=== PATIENT | female | born 1995 | race Caucasian/White ===

== ENCOUNTER 2023-02-10 08:35 | Emergency (ER) | payer MEDICAID ==
[2023-02-10] MEDS ORDERED: Ondansetron 4 MG/2 ML SDV IVPUSH ONE (09:11)
[2023-02-10] MEDS ORDERED: Loperamide 2 MG Cap PO STA (09:11)
[2023-02-10] MEDS ORDERED: Sodium Chloride 0.9% 1,000 ML IV ONE (09:11)
[2023-02-10] MEDS ORDERED: Ketorolac 30 MG/ML SDV IVPUSH STA (09:11)
[2023-02-10] MEDS ORDERED: Haloperidol Lactate 5 MG/ML SDV IM ONE (09:11)
== END 2023-02-10 10:36 | disposition home or self-care (01) ==
LOC: JD.ED 08:35
DX: G43.909 Migraine, unspecified, not intractable, without status migrainosus (principal); A08.4 Viral intestinal infection, unspecified; Z88.5 Allergy status to narcotic agent; Z88.2 Allergy status to sulfonamides; Z86.16 Personal history of COVID-19
CPT/HCPCS: 96361; 96372; 96374; 96375; 99283; A9270; J1630; J1885; J2405; J7030

== ENCOUNTER 2023-02-11 07:04 | Emergency (ER) | payer MEDICAID ==
[2023-02-11] MEDS ORDERED: Sodium Chloride 0.9% 1,000 ML IV ONE (08:08)
[2023-02-11] MEDS ORDERED: Ondansetron 4 MG/2 ML SDV IVPUSH ONE (08:08)
[2023-02-11 09:16] LABS: CORONAVIRUS COVID-19 NAA NEGATIVE (NEGATIVE)
== END 2023-02-11 12:27 | disposition home or self-care (01) ==
LOC: JD.ED 07:04
DX: A08.4 Viral intestinal infection, unspecified (principal); I95.9 Hypotension, unspecified; F45.8 Other somatoform disorders; Z88.2 Allergy status to sulfonamides; Z88.5 Allergy status to narcotic agent; Z88.8 Allergy status to other drugs, medicaments and biological substances; Z86.16 Personal history of COVID-19; Z20.822 Contact with and (suspected) exposure to COVID-19
CPT/HCPCS: 0241U; 36415; 36600; 71046; 80053; 81001; 81025; 82803; 83735; 83880; 84443; 84484; 85007; 85027; 85379; 85610; 85730; 93005; 96361; 96374; 99284; J2405; J7030; 93010

== ENCOUNTER 2023-10-27 09:51 | Emergency (ER) | payer SELFPAY ==
[2023-10-27] MEDS ORDERED: Sodium Chloride 0.9% 10 ML Syringe FLUSH PRN (10:22)
[2023-10-27] MEDS ORDERED: Ondansetron 4 MG/2 ML SDV IVPUSH ONE (10:22)
[2023-10-27] MEDS ORDERED: Lactated Ringers 1,000 ML IV ONE (10:26)
[2023-10-27 10:53] LABS: HEMATOCRIT 37.9 % (37.0-47.0); HEMOGLOBIN 12.4 gm/dl (12.0-16.0); MEAN CORPUSCULAR VOLUME 83.3 fl (83.0-99.0); RED BLOOD CELL COUNT 4.55 M/mm3 (4.10-5.30); WHITE BLOOD CELL COUNT,WBC 6.54 K/mm3 (3.9-11.3)
[2023-10-27 10:54] LABS: BASOPHILS PERCENT AUTO 0.5 % (0.0-1.0); EOSINOPHILS ABSOLUTE AUTO 0.1 K/mm3 (0.0-0.4); EOSINOPHILS PERCENT AUTO 2.1 % (0.0-6.0); IMMATURE GRAN ABSOLUTE AUTO 0.02 K/mm3 (0.00-0.05); IMMATURE GRAN PERCENT AUTO 0.3 % (0.0-0.4); LYMPHOCYTES ABSOLUTE AUTO 1.2 K/mm3 (1.0-4.8); LYMPHOCYTES PERCENT AUTO 18.3 % (24.0-44.0); MEAN CORPUSCULAR HEMOGLOBIN 27.3 pg (28.0-32.0); MEAN CORPUSCULAR HGB CONC 32.7 g/dl (32.0-36.0); MEAN PLATELET VOLUME 9.9 fl (9.4-12.3); MONOCYTES ABSOLUTE AUTO 0.4 K/mm3 (0.0-0.8); MONOCYTES PERCENT AUTO 5.5 % (0.0-8.0); NEUTROPHILS ABSOLUTE AUTO 4.8 K/mm3 (1.8-7.7); NEUTROPHILS PERCENT AUTO 73.3 % (41.0-71.0); PLATELET COUNT,PLT 279 K/mm3 (150-400)
[2023-10-27 11:01] LABS: APPEARANCE,URINE SLT CLOUDY (Clear); BILIRUBIN,URINE NEGATIVE (Negative); COLOR,URINE YELLOW (Yellow); GLUCOSE,URINE NEGATIVE (Negative); KETONES,URINE 1+ (Negative); LEUKOCYTE ESTERASE,URINE NEGATIVE (Negative); NITRITE,URINE NEGATIVE (Negative); OCCULT BLOOD,URINE NEGATIVE (Negative); PROTEIN,URINE 1+ (Negative); UROBILINOGEN,URINE 0.2 (0.2-1.0)
[2023-10-27 11:14] LABS: A/G RATIO 0.9 (1-2); ALBUMIN 3.4 g/dl (3.4-5.0); ANION GAP 17.9 (5-15); BILIRUBIN TOTAL 0.2 mg/dL (0.2-1.0); CALCIUM 8.7 mg/dL (8.5-10.1); EST CRCL DRUG DOSING (CG) 76.71 mL/min; MAGNESIUM 1.6 mg/dL (1.8-2.4); POTASSIUM,K 3.9 mEq/L (3.5-5.1)
[2023-10-27 11:33] LABS: CORONAVIRUS COVID-19 NAA POSITIVE (NEGATIVE); INFLUENZA A NAA NEGATIVE (NEGATIVE); RESPIRATORY SYNCYTIAL VIR NAA NEGATIVE (NEGATIVE)
[2023-10-27 11:37] LABS: BACTERIA,URINE FEW /hpf (FEW); MUCUS,URINE FEW /hpf (FEW); RBC,URINE 0-5 /hpf (0-5); WBC,URINE 0-5 /hpf (0-5)
== END 2023-10-27 12:05 | disposition home or self-care (01) ==
LOC: JD.ED 09:51
DX: U07.1 COVID-19 (principal); J45.909 Unspecified asthma, uncomplicated; Z86.16 Personal history of COVID-19; Z79.899 Other long term (current) drug therapy; Z88.2 Allergy status to sulfonamides; Z88.5 Allergy status to narcotic agent; Z91.041 Radiographic dye allergy status; Z88.8 Allergy status to other drugs, medicaments and biological substances
CPT/HCPCS: 0241U; 36415; 80053; 81001; 81025; 83690; 83735; 85025; 96361; 96374; 99284; J2405; J3490; J7120

== ENCOUNTER 2024-08-29 14:52 | Emergency (ER) | payer OTHER ==
[2024-08-29 15:29] LABS: BASOPHILS PERCENT AUTO 0.3 % (0.0-1.0); EOSINOPHILS ABSOLUTE AUTO 0.2 K/mm3 (0.0-0.4); EOSINOPHILS PERCENT AUTO 2.1 % (0.0-6.0); HEMATOCRIT 39.6 % (37.0-47.0); HEMOGLOBIN 13.1 gm/dl (12.0-16.0); IMMATURE GRAN ABSOLUTE AUTO 0.03 K/mm3 (0.00-0.05); IMMATURE GRAN PERCENT AUTO 0.3 % (0.0-0.4); LYMPHOCYTES ABSOLUTE AUTO 1.6 K/mm3 (1.0-4.8); LYMPHOCYTES PERCENT AUTO 14.3 % (24.0-44.0); MEAN CORPUSCULAR HGB CONC 33.1 g/dl (32.0-36.0); MEAN CORPUSCULAR VOLUME 84.6 fl (83.0-99.0); MEAN PLATELET VOLUME 10.1 fl (9.4-12.3); MONOCYTES ABSOLUTE AUTO 0.6 K/mm3 (0.0-0.8); MONOCYTES PERCENT AUTO 5.1 % (0.0-8.0); NEUTROPHILS ABSOLUTE AUTO 8.9 K/mm3 (1.8-7.7); NEUTROPHILS PERCENT AUTO 77.9 % (41.0-71.0); PLATELET COUNT,PLT 384 K/mm3 (150-400); RED BLOOD CELL COUNT 4.68 M/mm3 (4.10-5.30); WHITE BLOOD CELL COUNT,WBC 11.44 K/mm3 (3.9-11.3)
[2024-08-29] MEDS: diphenhydrAMINE 50 MG/ML SDV IVPUSH ONE (15:34)
[2024-08-29] MEDS: Sodium Chloride 0.9% 1,000 ML IV SCH (15:34)
[2024-08-29] MEDS: Metoclopramide 10 MG/2 ML SDV IVPUSH ONE (15:34)
[2024-08-29 16:09] LABS: A/G RATIO 1.1 (1-2); ALBUMIN 4.1 g/dl (3.4-5.0); ANION GAP 19.5 (5-15); BILIRUBIN TOTAL 0.5 mg/dL (0.2-1.0); C-REACTIVE PROTEIN 1.51 mg/dL (<0.30); CALCIUM 9.1 mg/dL (8.5-10.1); EST CRCL DRUG DOSING (CG) 76.04 mL/min; POTASSIUM,K 3.5 mEq/L (3.5-5.1)
[2024-08-29 16:24] LABS: CORONAVIRUS COVID-19 NAA NEGATIVE (NEGATIVE); INFLUENZA A NAA NEGATIVE (NEGATIVE); RESPIRATORY SYNCYTIAL VIR NAA NEGATIVE (NEGATIVE)
[2024-08-29 16:40] LABS: APPEARANCE,URINE CLEAR (Clear); BILIRUBIN,URINE 1+ (Negative); COLOR,URINE YELLOW (Yellow); GLUCOSE,URINE NEGATIVE (Negative); KETONES,URINE 2+ (Negative); LEUKOCYTE ESTERASE,URINE NEGATIVE (Negative); NITRITE,URINE NEGATIVE (Negative); OCCULT BLOOD,URINE NEGATIVE (Negative); PH,URINE 6.5 (5.0-8.0); PROTEIN,URINE 3+ (Negative)
[2024-08-29 17:02] LABS: RBC,URINE 0-5 /hpf (0-5)
[2024-08-29 17:03] LABS: BACTERIA,URINE MODERATE /hpf (FEW); MUCUS,URINE MODERATE /hpf (FEW); WBC,URINE 0-5 /hpf (0-5)
== END 2024-08-29 16:47 | disposition home or self-care (01) ==
LOC: JD.ED 14:52
DX: R11.2 Nausea with vomiting, unspecified (principal); R10.10 Upper abdominal pain, unspecified; Z79.899 Other long term (current) drug therapy; Z88.0 Allergy status to penicillin; Z88.8 Allergy status to other drugs, medicaments and biological substances; Z91.041 Radiographic dye allergy status; Z86.16 Personal history of COVID-19
CPT/HCPCS: 0241U; 36415; 80053; 81001; 83605; 83690; 83735; 84702; 85025; 86140; 96361; 96374; 96375; 99284; J1200; J2765; J7030

== ENCOUNTER 2024-11-07 07:29 | Emergency (ER) | payer OTHER ==
[2024-11-07] MEDS: Ondansetron 4 MG/2 ML SDV IVPUSH ONE (08:14)
[2024-11-07] MEDS: Sodium Chloride 0.9% 1,000 ML IV STA (08:14)
[2024-11-07 08:15] LABS: BASOPHILS PERCENT AUTO 0.1 % (0.0-1.0); EOSINOPHILS PERCENT AUTO 0.2 % (0.0-6.0); HEMATOCRIT 38.3 % (37.0-47.0); HEMOGLOBIN 12.4 gm/dl (12.0-16.0); IMMATURE GRAN ABSOLUTE AUTO 0.03 K/mm3 (0.00-0.05); IMMATURE GRAN PERCENT AUTO 0.3 % (0.0-0.4); LYMPHOCYTES ABSOLUTE AUTO 1.2 K/mm3 (1.0-4.8); LYMPHOCYTES PERCENT AUTO 13.3 % (24.0-44.0); MEAN CORPUSCULAR HEMOGLOBIN 28.1 pg (28.0-32.0); MEAN CORPUSCULAR HGB CONC 32.4 g/dl (32.0-36.0); MEAN CORPUSCULAR VOLUME 86.8 fl (83.0-99.0); MONOCYTES ABSOLUTE AUTO 0.3 K/mm3 (0.0-0.8); MONOCYTES PERCENT AUTO 3.6 % (0.0-8.0); NEUTROPHILS ABSOLUTE AUTO 7.3 K/mm3 (1.8-7.7); NEUTROPHILS PERCENT AUTO 82.5 % (41.0-71.0); PLATELET COUNT,PLT 275 K/mm3 (150-400); RED BLOOD CELL COUNT 4.41 M/mm3 (4.10-5.30); WHITE BLOOD CELL COUNT,WBC 8.86 K/mm3 (3.9-11.3)
[2024-11-07] MEDS: HYDROmorphone 0.5 MG/0.5 ML Syringe IVPUSH ONE (08:15)
[2024-11-07] MEDS: Sodium Chloride 0.9% 10 ML Syringe FLUSH PRN (08:16)
[2024-11-07 08:46] LABS: A/G RATIO 1.1 (1-2); ALBUMIN 3.7 g/dl (3.4-5.0); ANION GAP 19.4 (5-15); BILIRUBIN TOTAL 0.8 mg/dL (0.2-1.0); BUN/CREATININE RATIO 12.2 (14-18); CALCIUM 8.7 mg/dL (8.5-10.1); CREATININE 0.9 mg/dL (0.55-1.02); EST CRCL DRUG DOSING (CG) 84.49 mL/min; MAGNESIUM 1.9 mg/dL (1.8-2.4); POTASSIUM,K 3.4 mEq/L (3.5-5.1); PROTEIN TOTAL,TP 7.2 g/dl (6.4-8.2)
[2024-11-07 10:00] LABS: APPEARANCE,URINE CLEAR (Clear); BILIRUBIN,URINE NEGATIVE (Negative); COLOR,URINE YELLOW (Yellow); GLUCOSE,URINE NEGATIVE (Negative); KETONES,URINE 4+ (Negative); LEUKOCYTE ESTERASE,URINE NEGATIVE (Negative); NITRITE,URINE NEGATIVE (Negative); OCCULT BLOOD,URINE 2+ (Negative); PH,URINE 6.5 (5.0-8.0); PROTEIN,URINE 1+ (Negative)
[2024-11-07 10:48] LABS: BACTERIA,URINE FEW /hpf (FEW); RBC,URINE 0-5 /hpf (0-5); SQUAMOUS EPITHELIAL CELLS,UR 0-5 /hpf (0-5); WBC,URINE 0-5 /hpf (0-5)
[2024-11-07 10:49] LABS: MUCUS,URINE MODERATE /hpf (FEW)
[2024-11-07] MEDS: Metoclopramide 10 MG/2 ML SDV IVPUSH ONE (11:43)
[2024-11-07] MEDS: Sodium Chloride 0.9% 1,000 ML IV ONE (11:43)
== END 2024-11-07 13:05 | disposition home or self-care (01) ==
LOC: JD.ED 07:29
DX: A08.4 Viral intestinal infection, unspecified (principal); E86.0 Dehydration; J45.909 Unspecified asthma, uncomplicated; Z86.16 Personal history of COVID-19; Z90.89 Acquired absence of other organs; Z88.2 Allergy status to sulfonamides; Z88.5 Allergy status to narcotic agent; Z88.8 Allergy status to other drugs, medicaments and biological substances; Z91.041 Radiographic dye allergy status; Z79.899 Other long term (current) drug therapy
CPT/HCPCS: 36415; 74176; 80053; 81001; 83690; 83735; 84703; 85025; 96361; 96374; 96375; 99284; J2405; J2765; J7030

== ENCOUNTER 2024-11-09 15:09 | Emergency (ER) | payer OTHER | END 2024-11-09 16:00 | disposition left against medical advice (07) | LOC: JD.ED 15:09 | DX: Z53.21 Procedure and treatment not carried out due to patient leaving prior to being seen by health care provider (principal) ==

== ENCOUNTER 2024-11-10 04:11 | Emergency (ER) | payer OTHER ==
[2024-11-10] MEDS ORDERED: droPERidol 5 MG/2 ML SDV IVPUSH ONE (04:32)
[2024-11-10] MEDS: diphenhydrAMINE 50 MG/ML SDV IVPUSH ONE (04:46)
[2024-11-10] MEDS: Haloperidol Lactate 5 MG/ML SDV IVPUSH ONE ×2 (04:47→07:24)
[2024-11-10 04:56] LABS: BASOPHILS PERCENT AUTO 0.6 % (0.0-1.0); EOSINOPHILS ABSOLUTE AUTO 0.1 K/mm3 (0.0-0.4); HEMATOCRIT 39.1 % (37.0-47.0); HEMOGLOBIN 12.8 gm/dl (12.0-16.0); IMMATURE GRAN ABSOLUTE AUTO 0.01 K/mm3 (0.00-0.05); IMMATURE GRAN PERCENT AUTO 0.2 % (0.0-0.4); LYMPHOCYTES ABSOLUTE AUTO 2.8 K/mm3 (1.0-4.8); LYMPHOCYTES PERCENT AUTO 44.2 % (24.0-44.0); MEAN CORPUSCULAR HEMOGLOBIN 27.8 pg (28.0-32.0); MEAN CORPUSCULAR HGB CONC 32.7 g/dl (32.0-36.0); MEAN PLATELET VOLUME 10.4 fl (9.4-12.3); MONOCYTES ABSOLUTE AUTO 0.6 K/mm3 (0.0-0.8); MONOCYTES PERCENT AUTO 8.9 % (0.0-8.0); NEUTROPHILS ABSOLUTE AUTO 2.9 K/mm3 (1.8-7.7); NEUTROPHILS PERCENT AUTO 45.1 % (41.0-71.0); PLATELET COUNT,PLT 320 K/mm3 (150-400); WHITE BLOOD CELL COUNT,WBC 6.31 K/mm3 (3.9-11.3)
[2024-11-10] MEDS: Sodium Chloride 0.9% 1,000 ML IV SCH (04:57)
[2024-11-10 05:09] LABS: APPEARANCE,URINE CLEAR (Clear); BILIRUBIN,URINE 1+ (Negative); COLOR,URINE YELLOW (Yellow); GLUCOSE,URINE NEGATIVE (Negative); KETONES,URINE NEGATIVE (Negative); LEUKOCYTE ESTERASE,URINE NEGATIVE (Negative); NITRITE,URINE NEGATIVE (Negative); OCCULT BLOOD,URINE 2+ (Negative); PROTEIN,URINE 3+ (Negative)
[2024-11-10] MEDS: Sodium Chloride 0.9% 10 ML Syringe FLUSH PRN (05:09)
[2024-11-10 05:16] LABS: BACTERIA,URINE MODERATE /hpf (FEW); MUCUS,URINE FEW /hpf (FEW); RBC,URINE 0-5 /hpf (0-5); WBC,URINE 0-5 /hpf (0-5)
[2024-11-10 05:27] LABS: BARBITURATE SCREEN,URINE NEGATIVE (CUTOFF=200); BENZODIAZEPINES SCREEN,URINE NEGATIVE (CUTOFF=150); BUPRENORPHINE SCREEN,URINE NEGATIVE (CUTOFF=10); METHADONE SCREEN, URINE NEGATIVE (CUTOFF=200); METHAMPHETAMINES SCREEN, URINE PRESUMPTIVE POSITIVE (CUTOFF=500); OXYCODONE SCREEN,URINE NEGATIVE (CUT0FF=100); THC SCREEN,URINE 20 NG/ML PRESUMPTIVE POSITIVE (CUTOFF=50)
[2024-11-10] MEDS: LORazepam 2 MG/ML SDV IVPUSH ONE (05:48)
[2024-11-10 06:05] LABS: A/G RATIO 1.2 (1-2); ALBUMIN 4.1 g/dl (3.4-5.0); BILIRUBIN TOTAL 0.9 mg/dL (0.2-1.0); EST CRCL DRUG DOSING (CG) 72.97 mL/min; PROTEIN TOTAL,TP 7.6 g/dl (6.4-8.2)
[2024-11-10 06:09] LABS: AMPHETAMINES SCREEN, URINE NEGATIVE (CUTOFF=500)
[2024-11-10 06:16] LABS: LACTIC ACID 2.3 mmol/L (0.4-2.0)
[2024-11-10] MEDS: Sodium Chloride 0.9% 1,000 ML IV ONE ×2 (07:13→08:25)
[2024-11-10] MEDS: LORazepam 2 MG/ML SDV IVPUSH STA (07:22)
[2024-11-10 08:34] LABS: ANION GAP 23.5 (5-15); POTASSIUM,K 3.5 mEq/L (3.5-5.1)
== END 2024-11-10 10:22 ==
LOC: JD.ED 04:11
DX: R11.15 Cyclical vomiting syndrome unrelated to migraine (principal); F12.90 Cannabis use, unspecified, uncomplicated; E86.0 Dehydration; R79.89 Other specified abnormal findings of blood chemistry; J45.909 Unspecified asthma, uncomplicated; Z86.16 Personal history of COVID-19; Z90.89 Acquired absence of other organs; Z88.2 Allergy status to sulfonamides; Z88.5 Allergy status to narcotic agent; Z88.8 Allergy status to other drugs, medicaments and biological substances; Z91.041 Radiographic dye allergy status; Z79.899 Other long term (current) drug therapy
CPT/HCPCS: 36415; 80053; 80306; 81001; 81025; 83605; 83690; 85025; 87040; 87045; 87046; 87428; 87899; 93005; 96361; 96374; 96375; 96376; 99284; J1200; J1630; J2060; J7030

== ENCOUNTER 2024-11-11 13:19 | Emergency (ER) | payer OTHER | END 2024-11-11 14:54 | disposition left against medical advice (07) | LOC: JD.ED 13:19 | DX: Z53.21 Procedure and treatment not carried out due to patient leaving prior to being seen by health care provider (principal) ==

== ENCOUNTER 2024-11-14 10:44 | Inpatient (IN) | payer OTHER ==
[2024-11-14 13:59] LABS: BASOPHILS PERCENT AUTO 0.3 % (0.0-1.0); EOSINOPHILS PERCENT AUTO 0.4 % (0.0-6.0); HEMATOCRIT 39.8 % (37.0-47.0); HEMOGLOBIN 13.6 gm/dl (12.0-16.0); IMMATURE GRAN ABSOLUTE AUTO 0.03 K/mm3 (0.00-0.05); IMMATURE GRAN PERCENT AUTO 0.4 % (0.0-0.4); MEAN CORPUSCULAR HEMOGLOBIN 28.2 pg (28.0-32.0); MEAN CORPUSCULAR HGB CONC 34.2 g/dl (32.0-36.0); MEAN CORPUSCULAR VOLUME 82.4 fl (83.0-99.0); MEAN PLATELET VOLUME 10.8 fl (9.4-12.3); MONOCYTES ABSOLUTE AUTO 0.6 K/mm3 (0.0-0.8); MONOCYTES PERCENT AUTO 9.4 % (0.0-8.0); NEUTROPHILS ABSOLUTE AUTO 4.1 K/mm3 (1.8-7.7); NEUTROPHILS PERCENT AUTO 60.5 % (41.0-71.0); PLATELET COUNT,PLT 351 K/mm3 (150-400); RED BLOOD CELL COUNT 4.83 M/mm3 (4.10-5.30); WHITE BLOOD CELL COUNT,WBC 6.82 K/mm3 (3.9-11.3)
[2024-11-14 14:32] LABS: A/G RATIO 1.3 (1-2); ALBUMIN 4.4 g/dl (3.4-5.0); ANION GAP 16.7 (5-15); BILIRUBIN TOTAL 1.1 mg/dL (0.2-1.0); C-REACTIVE PROTEIN 0.22 mg/dL (<0.30); CALCIUM 9.4 mg/dL (8.5-10.1); CREATININE 0.9 mg/dL (0.55-1.02); EST CRCL DRUG DOSING (CG) 84.49 mL/min; POTASSIUM,K 2.7 mEq/L (3.5-5.1); PROTEIN TOTAL,TP 7.9 g/dl (6.4-8.2)
[2024-11-14] MEDS: Sodium Chloride 0.9% 1,000 ML IV ONE ×2 (14:32→15:57)
[2024-11-14] MEDS: Metoclopramide 10 MG/2 ML SDV IVPUSH ONE (14:32)
[2024-11-14 15:53] LABS: APPEARANCE,URINE CLEAR (Clear); BILIRUBIN,URINE 1+ (Negative); COLOR,URINE YELLOW (Yellow); GLUCOSE,URINE NEGATIVE (Negative); KETONES,URINE 3+ (Negative); LEUKOCYTE ESTERASE,URINE NEGATIVE (Negative); NITRITE,URINE NEGATIVE (Negative); OCCULT BLOOD,URINE NEGATIVE (Negative); PROTEIN,URINE 2+ (Negative)
[2024-11-14] MEDS: Potassium Chloride 10 MEQ in Premix Bag 1 BAG IV SCH (15:58)
[2024-11-14 15:59] LABS: BACTERIA,URINE MODERATE /hpf (FEW); MUCUS,URINE FEW /hpf (FEW); RBC,URINE 0-5 /hpf (0-5); WBC,URINE 0-5 /hpf (0-5)
[2024-11-14] MEDS ORDERED: Ondansetron 4 MG/2 ML SDV IV PRN (17:19)
[2024-11-14 17:57] LABS: MAGNESIUM 1.9 mg/dL (1.8-2.4); PHOSPHORUS 2.3 mg/dL (2.6-4.7)
[2024-11-14] MEDS: NS with KCl 40mEq 1,000 ML IV SCH (18:28)
[2024-11-14 21:14] LABS: BARBITURATE SCREEN,URINE NEGATIVE (CUTOFF=200); BENZODIAZEPINES SCREEN,URINE NEGATIVE (CUTOFF=150); BUPRENORPHINE SCREEN,URINE NEGATIVE (CUTOFF=10); METHADONE SCREEN, URINE NEGATIVE (CUTOFF=200); METHAMPHETAMINES SCREEN, URINE NEGATIVE (CUTOFF=500); OXYCODONE SCREEN,URINE NEGATIVE (CUT0FF=100); THC SCREEN,URINE 20 NG/ML PRESUMPTIVE POSITIVE (CUTOFF=50)
[2024-11-14 21:16] LABS: AMPHETAMINES SCREEN, URINE NEGATIVE (CUTOFF=500)
[2024-11-14] MEDS: Metoclopramide 10 MG/2 ML SDV IVPUSH PRN (21:21)
[2024-11-14] MEDS: D5 1/2 NS w/ 40 mEq/L KCl 1,000 ML IV SCH (21:21)
[2024-11-14] MEDS: Citalopram 20 MG Tab PO SCH (21:44)
[2024-11-14] MEDS: lamoTRIgine 100 MG Tab PO SCH (21:44)
[2024-11-15 04:46] LABS: BASOPHILS PERCENT AUTO 0.4 % (0.0-1.0); EOSINOPHILS ABSOLUTE AUTO 0.1 K/mm3 (0.0-0.4); EOSINOPHILS PERCENT AUTO 0.7 % (0.0-6.0); HEMATOCRIT 38.1 % (37.0-47.0); HEMOGLOBIN 12.3 gm/dl (12.0-16.0); IMMATURE GRAN ABSOLUTE AUTO 0.01 K/mm3 (0.00-0.05); IMMATURE GRAN PERCENT AUTO 0.1 % (0.0-0.4); LYMPHOCYTES ABSOLUTE AUTO 3.2 K/mm3 (1.0-4.8); LYMPHOCYTES PERCENT AUTO 43.9 % (24.0-44.0); MEAN CORPUSCULAR HEMOGLOBIN 27.6 pg (28.0-32.0); MEAN CORPUSCULAR HGB CONC 32.3 g/dl (32.0-36.0); MEAN CORPUSCULAR VOLUME 85.6 fl (83.0-99.0); MEAN PLATELET VOLUME 10.8 fl (9.4-12.3); MONOCYTES ABSOLUTE AUTO 0.8 K/mm3 (0.0-0.8); MONOCYTES PERCENT AUTO 11.3 % (0.0-8.0); NEUTROPHILS ABSOLUTE AUTO 3.2 K/mm3 (1.8-7.7); NEUTROPHILS PERCENT AUTO 43.6 % (41.0-71.0); PLATELET COUNT,PLT 299 K/mm3 (150-400); RED BLOOD CELL COUNT 4.45 M/mm3 (4.10-5.30); WHITE BLOOD CELL COUNT,WBC 7.32 K/mm3 (3.9-11.3)
[2024-11-15 05:16] LABS: A/G RATIO 1.2 (1-2); ALBUMIN 3.7 g/dl (3.4-5.0); ANION GAP 14.4 (5-15); BILIRUBIN TOTAL 1.1 mg/dL (0.2-1.0); CALCIUM 8.2 mg/dL (8.5-10.1); CREATININE 0.8 mg/dL (0.55-1.02); EST CRCL DRUG DOSING (CG) 95.05 mL/min; POTASSIUM,K 3.4 mEq/L (3.5-5.1); PROTEIN TOTAL,TP 6.7 g/dl (6.4-8.2)
[2024-11-15] MEDS: Pantoprazole 40 MG Tab.CR PO SCH (05:37)
[2024-11-15] MEDS ORDERED: lamoTRIgine 100 MG Tab PO SCH (09:00)
[2024-11-15] MEDS ORDERED: Citalopram 20 MG Tab PO SCH (09:00)
[2024-11-15] MEDS: Enoxaparin 40 MG/0.4 ML Syringe SUBCUT SCH (09:07)
[2024-11-15] MEDS: Potassium Chloride 10 MEQ in Premix Bag 1 BAG IV SCH (09:16)
[2024-11-15] MEDS: Sodium Chloride 0.9% 1,000 ML IV SCH (10:48)
[2024-11-15] MEDS: Metoclopramide 10 MG/2 ML SDV IVPUSH SCH (18:09)
[2024-11-15] MEDS: Acetaminophen 325 MG Tab PO PRN (18:13)
[2024-11-16 04:38] LABS: BASOPHILS PERCENT AUTO 0.3 % (0.0-1.0); EOSINOPHILS ABSOLUTE AUTO 0.1 K/mm3 (0.0-0.4); EOSINOPHILS PERCENT AUTO 0.9 % (0.0-6.0); HEMATOCRIT 39.7 % (37.0-47.0); HEMOGLOBIN 12.7 gm/dl (12.0-16.0); IMMATURE GRAN ABSOLUTE AUTO 0.01 K/mm3 (0.00-0.05); IMMATURE GRAN PERCENT AUTO 0.2 % (0.0-0.4); LYMPHOCYTES ABSOLUTE AUTO 2.7 K/mm3 (1.0-4.8); LYMPHOCYTES PERCENT AUTO 47.2 % (24.0-44.0); MEAN CORPUSCULAR HEMOGLOBIN 27.4 pg (28.0-32.0); MEAN CORPUSCULAR VOLUME 85.7 fl (83.0-99.0); MEAN PLATELET VOLUME 10.7 fl (9.4-12.3); MONOCYTES ABSOLUTE AUTO 0.7 K/mm3 (0.0-0.8); MONOCYTES PERCENT AUTO 11.2 % (0.0-8.0); NEUTROPHILS ABSOLUTE AUTO 2.3 K/mm3 (1.8-7.7); NEUTROPHILS PERCENT AUTO 40.2 % (41.0-71.0); PLATELET COUNT,PLT 287 K/mm3 (150-400); RED BLOOD CELL COUNT 4.63 M/mm3 (4.10-5.30); WHITE BLOOD CELL COUNT,WBC 5.79 K/mm3 (3.9-11.3)
[2024-11-16 05:17] LABS: A/G RATIO 1.3 (1-2); ALBUMIN 3.9 g/dl (3.4-5.0); ANION GAP 19.1 (5-15); BILIRUBIN TOTAL 0.9 mg/dL (0.2-1.0); CALCIUM 8.9 mg/dL (8.5-10.1); CREATININE 0.8 mg/dL (0.55-1.02); EST CRCL DRUG DOSING (CG) 95.05 mL/min; MAGNESIUM 2.2 mg/dL (1.8-2.4); PHOSPHORUS 4.2 mg/dL (2.6-4.7); POTASSIUM,K 3.1 mEq/L (3.5-5.1)
[2024-11-16] MEDS ORDERED: Sodium Chloride 0.9% 1,000 ML IV SCH (07:45)
[2024-11-16] MEDS ORDERED: Potassium Chloride 10 MEQ in Premix Bag 1 BAG IV SCH (08:00)
[2024-11-16] MEDS: Potassium Chloride 20 MEQ Tab.ER PO SCH (09:34)
[2024-11-19 09:42] LABS: CALPROTECTIN,FECAL 56 ug/g (<=49)
== END 2024-11-16 15:12 | disposition home or self-care (01) | DRG 392 ==
LOC: JD.ED 10:44 → JD.MS 17:19
PROVIDERS: ADMIT Family Medicine; ATTEND Family Medicine
DX: K31.84 Gastroparesis (principal); E87.20 Acidosis, unspecified; N17.9 Acute kidney failure, unspecified; S36.119A Unspecified injury of liver, initial encounter; K52.9 Noninfective gastroenteritis and colitis, unspecified; R11.10 Vomiting, unspecified; F12.120 Cannabis abuse with intoxication, uncomplicated; F41.9 Anxiety disorder, unspecified; H54.7 Unspecified visual loss; D50.9 Iron deficiency anemia, unspecified; F17.210 Nicotine dependence, cigarettes, uncomplicated; F15.10 Other stimulant abuse, uncomplicated; E86.0 Dehydration; T73.0XXA Starvation, initial encounter; E87.6 Hypokalemia; E83.39 Other disorders of phosphorus metabolism; R74.8 Abnormal levels of other serum enzymes; F31.9 Bipolar disorder, unspecified; R63.0 Anorexia; Z68.28 Body mass index [BMI] 28.0-28.9, adult; Z88.2 Allergy status to sulfonamides; Z88.7 Allergy status to serum and vaccine; Z91.041 Radiographic dye allergy status; Z79.899 Other long term (current) drug therapy; Z86.16 Personal history of COVID-19; Z98.890 Other specified postprocedural states; Z87.42 Personal history of other diseases of the female genital tract; Z87.440 Personal history of urinary (tract) infections
CPT/HCPCS: 36415; 74176; 74176-26; 80053; 80306; 81001; 81025; 82550; 83605; 83630; 83690; 83735; 84100; 85025; 86140; 87045; 87046; 87338; 87428-QW; 87899; 96361; 96365; 96375; 99223; 99233; 99239; 99284; 99285-25; A9270-GY; J1650; J2765; J3480; J7030

== ENCOUNTER 2025-07-23 03:50 | Emergency (ER) | payer BC, OTHER ==
[2025-07-23] MEDS: Ondansetron 4 MG/2 ML SDV IVPUSH ONE (04:32)
[2025-07-23 04:42] LABS: BASOPHILS ABSOLUTE AUTO 0.0 K/mm3 (0.0-0.2); BASOPHILS PERCENT AUTO 0.1 % (0.0-1.0); EOSINOPHILS ABSOLUTE AUTO 0.0 K/mm3 (0.0-0.4); EOSINOPHILS PERCENT AUTO 0.0 % (0.0-6.0); IMMATURE GRAN ABSOLUTE AUTO 0.04 K/mm3 (0.00-0.05); IMMATURE GRAN PERCENT AUTO 0.3 % (0.0-0.4); LYMPHOCYTES ABSOLUTE AUTO 1.3 K/mm3 (1.0-4.8); LYMPHOCYTES PERCENT AUTO 9.3 % (24.0-44.0); MEAN PLATELET VOLUME 10.4 fl (9.4-12.3); MONOCYTES ABSOLUTE AUTO 0.2 K/mm3 (0.0-0.8); MONOCYTES PERCENT AUTO 1.3 % (0.0-8.0); NEUTROPHILS ABSOLUTE AUTO 12.0 K/mm3 (1.8-7.7); NEUTROPHILS PERCENT AUTO 89.0 % (41.0-71.0); NRBC ABSOLUTE 0.00 (0.00-0.02); NRBC PERCENT 0.0 % (0.0-0.2); PLATELET COUNT,PLT 388 K/mm3 (150-400); RED BLOOD CELL COUNT 4.75 M/mm3 (4.10-5.30); WHITE BLOOD CELL COUNT,WBC 13.48 K/mm3 (3.9-11.3)
[2025-07-23 04:43] LABS: APPEARANCE,URINE SLT CLOUDY (Clear); GLUCOSE,URINE NEGATIVE (Negative); OCCULT BLOOD,URINE TRACE-INTACT (Negative)
[2025-07-23 04:52] LABS: A/G RATIO 1.1 (1-2); ALANINE AMINOTRANSFERASE,ALT 31.0 U/L (14-59); ASPARTATE AMNIOTRANSFERASE,AST 16.0 U/L (15-37); BILIRUBIN TOTAL 0.6 mg/dL (0.2-1.0); BLOOD UREA NITROGEN,BUN 16.0 mg/dL (7-18); CARBON DIOXIDE,CO2 16.0 mEq/L (21-32); CHLORIDE,CL 100.0 mEq/L (98-107); CREATININE 1.0 mg/dL (0.55-1.02); EST CRCL DRUG DOSING (CG) 78.41 mL/min; ESTIMATED GFR 79.0 mL/min (>60); GLUCOSE RANDOM 128.0 mg/dL (70-99); PHOSPHORUS 3.6 mg/dL (2.6-4.7); POTASSIUM,K 3.4 mEq/L (3.5-5.1); PROTEIN TOTAL,TP 8.3 g/dl (6.4-8.2); SODIUM,NA 136.0 mEq/L (136-145)
[2025-07-23 04:54] LABS: BUPRENORPHINE SCREEN,URINE NEGATIVE (CUTOFF=10); METHADONE SCREEN, URINE NEGATIVE (CUTOFF=200); METHAMPHETAMINES SCREEN, URINE NEGATIVE (CUTOFF=500); OXYCODONE SCREEN,URINE NEGATIVE (CUT0FF=100); THC SCREEN,URINE 20 NG/ML PRESUMPTIVE POSITIVE (CUTOFF=50)
[2025-07-23 04:55] LABS: LACTIC ACID 1.4 mmol/L (0.4-2.0)
[2025-07-23 04:57] LABS: AMPHETAMINES SCREEN, URINE NEGATIVE (CUTOFF=500)
[2025-07-23] MEDS: droPERidol 2.5 MG/ML SDV IV ONE (05:11)
[2025-07-23] MEDS ORDERED: Sodium Chloride 0.9% 10 ML Syringe FLUSH PRN (05:13)
[2025-07-23] MEDS: diphenhydrAMINE 50 MG/ML SDV IVPUSH ONE (05:32)
[2025-07-23] MEDS: Iopamidol 612 MG/ML 100 ML Bottle IVPUSH ONE (06:03)
[2025-07-23] MEDS: Sodium Chloride 0.9% 10 ML Syringe FLUSH PRN (06:03)
== END 2025-07-23 07:35 | disposition home or self-care (01) ==
LOC: JD.ED 03:50
DX: R11.2 Nausea with vomiting, unspecified (principal); E86.0 Dehydration; J45.909 Unspecified asthma, uncomplicated; Z86.16 Personal history of COVID-19; Z88.2 Allergy status to sulfonamides; Z88.5 Allergy status to narcotic agent; Z88.8 Allergy status to other drugs, medicaments and biological substances; Z91.041 Radiographic dye allergy status; Z79.899 Other long term (current) drug therapy
CPT/HCPCS: 36415; 74177; 80053; 80306; 81001; 83605; 83690; 83735; 84100; 84703; 85025; 96361; 96374; 96375; 99284; J1200; J1790; J2405; J7030; Q9967